=== PATIENT | female | born 1975 | race Caucasian/White ===

== ENCOUNTER → 2023-06-07 | Day surgery (SDC) | payer OTHER ==
[~2023-06-07] MED LIST: DIPRIVAN 200 MG/20 ML IV ONE; Decadron 4 MG INJ IV ONE; Depo-Medrol 40 MG/ML IM ONE; Lactated Ringers 1,000 ML IV ONE; MORPHINE SULFATE 2 MG INJ ONE; Sodium Chloride 0.9(Preservative Free) 10 ML IJ ONE; XYLOCAINE-MPF 1% 5ML SDV IJ ONE
[2023-06-07 13:43] LABS: HCG URINE TEST NEGATIVE (NEGATIVE)
--- NOTE | 2023-06-07 16:40 | XRAY ---
Indication: Caudal SANTIAGO. Intraoperative fluoroscopy provided for 17 seconds. 2 digital spot images submitted for interpretation demonstrates caudal needle tip projecting mid sacrum. Small amount of contrast injected for needle tip placement. Correlate with intraoperative findings/report.
--- NOTE | 2023-06-07 16:40 | XRAY ---
Indication: Bilateral piriformis injection. Intraoperative fluoroscopy provided for 38 seconds. 2 digital spot images submitted for interpretation demonstrates posterior needle tip projecting over the left and right piriformis. Small amount of contrast injected for needle tip placement. Correlate with intraoperative findings/report.
--- NOTE | 2023-06-07 16:56 | XRAY ---
38 seconds of fluoroscopy was used in surgery for a bilateral piriformis injection.
--- NOTE | 2023-06-07 16:57 | XRAY ---
17 seconds of fluoroscopy was used in surgery for a caudal SANTIAGO.
== END ==
LOC: SDC-PAIN 13:14
PROVIDERS: ATTEND Psychiatry & Neurology Pain Medicine
DX: M54.16 Radiculopathy, lumbar region (principal); M79.18 Myalgia, other site
CPT/HCPCS: 20552; 62323; 72170; 72220; 77002; 77003; 81025; J1030; J1100; J2270; J2704; Q9966